=== PATIENT | female | born 1970 | race Caucasian/White ===

== ENCOUNTER 2020-08-01 10:38 | Day surgery (SDC) | payer OTHER ==
[2020-07-25 10:01] VITALS: BMI 24.4
[2020-08-01] MEDS ORDERED: SODIUM BICARBONATE 8.4% 50 MEQ/50 ML VIAL ONE (12:22)
[2020-08-01] MEDS ORDERED: LIDOCAINE 1%/EPI 1:100000 (20 ML MULTI DOSE VIAL) ONE (12:22)
[2020-08-01 13:27] VITALS: TEMP 97.8
[2020-08-01 13:54] VITALS: BP 130/80; PULSE 70
== END 2020-08-01 13:55 | disposition home or self-care (01) ==
LOC: FASU 10:38
PROVIDERS: ATTEND Orthopaedic Surgery Hand Surgery
PROC: 0LN80ZZ Release Left Hand Tendon, Open Approach (ICD-10-PCS; principal; 2020-08-01 12:45)
DX: M65.312 Trigger thumb, left thumb (principal)